=== PATIENT | female | born 2000 | race African-American/Black ===

== ENCOUNTER 2020-02-16 07:05 | Emergency (ER) | payer OTHER ==
[~2020-02-16] VITALS: Ht 160 cm; Wt 63.5 kg
[2020-02-16 08:04] LABS: URINE BILIRUBIN NEGATIVE (Negative); URINE BLOOD 3+ (Negative); URINE CLARITY CLEAR; URINE COLOR YELLOW; URINE GLUCOSE-RANDOM* NEGATIVE (Negative); URINE KETONES 3+ (Negative); URINE LEUKOCYTES-REFLEX NEGATIVE (Negative); URINE NITRITE-REFLEX NEGATIVE (Negative); URINE PROTEIN (DIPSTICK) 1+ (Negative); URINE UROBILINOGEN 0.2 E.U./dl (0.2-1.0)
[2020-02-16 08:05] LABS: ABSOLUTE NEUTROPHILS 5.5 thou/uL (1.4-8.2); BASOPHILS 0.2 % (0.0-2.0); EOSINOPHILS 0.2 % (0.0-3.0); HEMATOCRIT 42.5 % (37.0-47.0); HEMOGLOBIN 14.6 gm/dL (12.0-15.0); LYMPHOCYTES 15.6 % (24.0-44.0); MCH 26.5 pg (26.0-34.0); MCHC 34.4 g/dL (28.0-37.0); MCV 77.2 fL (80.0-100.0); MONOCYTES 6.8 % (1.0-8.0); PLATELET COUNT 310 thou/uL (150-400); POLYS 77.2 % (36.0-66.0); RBC 5.51 mil/uL (4.20-5.00); RDW 16.4 % (10.5-14.5); WBC 7.2 thou/uL (4.0-11.0)
[2020-02-16 08:07] LABS: CALCIUM 9.7 mg/dL (8.5-10.1); CREATININE 0.8 mg/dL (0.6-1.0); MAGNESIUM 2.1 mg/dL (1.8-2.4); POTASSIUM 3.3 mmol/L (3.5-5.1)
[2020-02-16 08:12] LABS: URINE REDUCING SUBSTANCE NEGATIVE
[2020-02-16 08:50] LABS: CASTS None Seen /LPF (None Seen); CRYSTALS None Seen /LPF (None Seen); SQUAMOUS 4-10 Moderate /LPF (0-3); URINE RBC 3-10 Few /HPF (0-2); URINE WBC-REFLEX 0-5 Rare /HPF (0-5)
[2020-02-16 08:51] LABS: BACTERIA-REFLEX 1-9 Few /HPF (None Seen)
[2020-02-16] MEDS ORDERED: VITAMIN B-625 MG PO (09:34)
[2020-02-16] MEDS ORDERED: MACROBID 100 M100 MG PO (09:34)
[2020-02-16 09:58] VITALS: BP 119/73
== END 2020-02-16 10:02 | disposition home or self-care (01) ==
LOC: ER 07:05
PROVIDERS: Emergency Medicine
DX: O23.91 Unspecified genitourinary tract infection in pregnancy, first trimester (principal); O21.8 Other vomiting complicating pregnancy; R42 Dizziness and giddiness; R10.84 Generalized abdominal pain; Z3A.09 9 weeks gestation of pregnancy